=== PATIENT | female | born 1950 | race Caucasian/White ===

== ENCOUNTER → 2018-12-19 11:34 | Outpatient (CLI) | payer MEDICARE, SELFPAY ==
--- NOTE | 2018-12-19 11:37 | NM_ITS ---
History and Indications: Hypertension, diabetes, tobacco use, family history, chest pain, shortness of breath abnormal EKG and fatigue Procedure: Patient received a 0.4 mg of intravenous Lexiscan, resting heart rate was 60 bpm resting blood pressure 129/51, with Lexiscan maximum heart rate achieved was 95 bpm which is less than 85% of the maximum predicted heart rate and a blood pressure was 91/47. With Lexiscan patient complained of nausea and vomiting requiring intravenous Aminophyllin to reverse symptoms. Electrocardiogram: Resting electrocardiogram showed sinus rhythm, with Lexiscan there is less than 1.[address] segment depression noted from the baseline EKG. The EKG portion of the Lexiscan Myoview is nondiagnostic. Cardiac stress and resting SPECT images: Cardiac stress and resting SPECT images were obtained using technetium 99 Myoview 32.7 mCi stress and 10.4 mCi at rest. Gated SPECT further analysis of segmental wall motion and calculation of the ejection fraction also done. Cardiac stress and resting SPECT images show uniform myocardial activity without segmental perfusion abnormality, computer derived ejection fraction is over 65% with no regional wall motion abnormality, right ventricle is normal size and contractility. Conclusion: 1. The EKG portion of the Lexiscan Myoview is nondiagnostic. 2. No scintigraphic evidence of reversible ischemia seen, computer derived ejection fraction is over 65% with no regional wall motion abnormality, right ventricle is normal size and contractility. 3. Normal Lexiscan Myoview study.
--- NOTE | 2018-12-19 12:46 | HMH.ITSHM ---
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 []CARVEDILOL METFORMIN ASA CITALOPRAM XARELTO ATORVASTATIN HYDROCHLOROT OMEPRAZOLE VITAMIN E VITAMIN B12 SPIRONOLACTONE NOVOLIN
== END ==
PROVIDERS: PCP Nurse Practitioner Family; Visit Provider Internal Medicine
DX: R07.9 Chest pain, unspecified (principal); R06.02 Shortness of breath
CPT/HCPCS: 78452; 93017; A9502; J2785

== ENCOUNTER → 2019-06-21 08:24 | Outpatient (CLI) | payer MEDICARE, SELFPAY ==
[2019-06-21 09:54] LABS: Alanine Aminotransferase 21 U/L (12-78); Albumin Level 3.6 gm/dL (3.4-5.0); Albumin/Globulin Ratio 1.3 (1.1-1.8); Alkaline Phosphatase 76 U/L (46-116); Anion Gap 11.8 mEq/L (5-15); Aspartate Amino Transferase 16 U/L (15-37); Bilirubin,Total 0.6 mg/dL (0.2-1.0); Blood Urea Nitrogen 23 mg/dL (7-18); Calcium 9.4 mg/dL (8.5-10.1); Carbon Dioxide 31 mmol/L (21.0-32.0); Chloride 105 mmol/L (98-107); Chol/HDL Ratio 2.9 (1-3.5); Cholesterol 168 mg/dL (140-200); Creatinine,Serum 1.45 mg/dL (0.55-1.02); Estimated Glomerular Filt Rate 36 ml/min (>60); GFR (African American) 43 ML/MIN (>60); Globulin 2.8 gm/dl (1.3-3.2); Glucose 112 mg/dL (74-106); HDL Cholesterol 57 mg/dL (29-89); LDL Cholesterol 85 mg/dL (0-130); Potassium 4.8 mmoL/L (3.5-5.1); Sodium 143 mmol/L (136-145); Total Protein,Serum 6.4 gm/dL (6.4-8.2); Triglycerides 131 mg/dL (30-200); VLDL Cholesterol 26 mg/dL (0-40)
[2019-06-22 09:25] LABS: Creatinine, Urine 216.5 mg/dL (Not Estab.); Microalbumin, Urine 6.2 ug/mL (Not Estab.)
== END ==
PROVIDERS: Visit Provider Internal Medicine Endocrinology, Diabetes & Metabolism
DX: E11.65 Type 2 diabetes mellitus with hyperglycemia (principal); E11.29 Type 2 diabetes mellitus with other diabetic kidney complication; E78.5 Hyperlipidemia, unspecified; I10 Essential (primary) hypertension; N18.3 Chronic kidney disease, stage 3 (moderate); Z79.4 Long term (current) use of insulin
CPT/HCPCS: 36415; 80053; 80061; 82043; 82570

== ENCOUNTER → 2019-08-12 08:11 | Outpatient (CLI) | payer MEDICARE, SELFPAY ==
--- NOTE | 2019-08-12 08:18 | CT_ITS ---
PROCEDURE: CT SHOULDER RT WO CON CLINICAL HISTORY: Rt shoulder pain Evaluate right shoulder fracture, right humeral fracture COMPARISON: XR SHOULDER RT MIN 2V from 08/06/2019 TECHNIQUE: Axial images obtained with sagittal and coronal reformats. All CT scans at the facility use one or more dose reduction, viz: automated exposure control, ma/kV adjustment per patient size (including targeted exams where dose is matched to indication, i.e. head), or iterative reconstruction technique. FINDINGS: There is a severely comminuted fracture involving the neck of the right humerus with extension into the humeral head with impaction of the fracture fragments. There is posterior displacement of the distal humerus by 9 mm. There is foreshortening with impaction of the distal humerus by 10 mm. Comminuted fracture involves the humeral head and greater tuberosity with lateral displacement of the greater tuberosity fragment by nearly 2 cm. There is mild inferior subluxation of the humeral head. No glenoid fracture is evident. Increased soft tissue density is present within the joint consistent with intra-articular hemorrhage. The acromioclavicular joint has an unremarkable appearance. IMPRESSION: Severely comminuted displaced and impacted fracture of the right humeral neck and head as described above. There is mild lateral and inferior humeral head subluxation but no lukas dislocation. Intra-articular hemarthrosis noted. Dictated by: Archie Perez MD 08/13/2019 07:23 Electronically signed by Archie Perez MD in [place] 08/13/2019 07:23
== END ==
PROVIDERS: PCP Nurse Practitioner Family; Referring Provider Orthopaedic Surgery; Visit Provider Orthopaedic Surgery
DX: S42.201A Unspecified fracture of upper end of right humerus, initial encounter for closed fracture (principal)
CPT/HCPCS: 73200

== ENCOUNTER → 2020-12-04 13:31 | Outpatient (CLI) | payer MEDICARE, MEDICAID, SELFPAY ==
--- NOTE | 2020-12-04 13:31 | CT_ITS ---
PROCEDURE: CT LUNG SCREENING CLINICAL INDICATION: LDCT Current smoker 30 pack year smoking history copd Family hx lung cancer History of COVID-19 Pt unable to raise arms above head No prior COMPARISON: No exams were available for comparison TECHNIQUE: The exam was performed on a [employer] Speed [address] scanner using 2.90 mGy CTDI. A low dose helical CT CHEST was performed on a multi-detector scanner. All CT scans at the facility use one or more dose reduction, viz: automated exposure control, ma/kV adjustment per patient size (including targeted exams where dose is matched to indication, i.e. head), or iterative reconstruction technique. The LDCT was performed in a facility that meets the criteria for the screening program. Data regarding this exam was submitted to ACR which is an approved registry. The order for this exam indicates that it came as a result of a lung cancer screening counseling shard decision-making visit that included all the elements required of such a visit including smoking cessation. The radiologist interpreting this exam meets the CMS criteria for the LDCT lung cancer screening program. The exam is reported using the Lung-RADS classification scale and reported to the ACR registry. NOTE: This study was performed for the specific purposes of lung cancer screening and is not an alternative to diagnostic chest CT. RADIATION DOSE: CTDI vol(CT dose Index-volume) = 2.90mG DLP (Dose Length Product) = 108.38 mGcm FINDINGS: Artifact is present from the patient's right shoulder prosthesis and the fact that the patient could not raise are arms above their head. There are scattered atelectatic and/or fibrotic changes. No suspicious pulmonary nodule identified soft tissue evaluation is very limited. Bony evaluation also very limited. Cannot adequately evaluate the mediastinal structures, bony structures, and upper abdominal structures. OTHER FINDINGS: No other pertinent findings evident. IMPRESSION: Lung-RADS Category 1 Negative Follow-up: Continue annual screening with LDCT in 12 months Dictated by: Archie Perez MD 12/06/2020 18:24 Archie Perez MD in [place] 12/06/2020 18:24
[2020-12-04 15:34] VITALS: PULSE 71; PULSE 75
== END ==
PROVIDERS: PCP Family Medicine; Visit Provider Internal Medicine Pulmonary Disease
DX: Z12.2 Encounter for screening for malignant neoplasm of respiratory organs; Z87.891 Personal history of nicotine dependence; R06.00 Dyspnea, unspecified
CPT/HCPCS: 71271; 94060; 94640; 94727; 94729

== ENCOUNTER → 2022-02-08 14:09 | Outpatient (CLI) | payer MEDICARE, MEDICAID, SELFPAY | PROVIDERS: PCP Family Medicine; Visit Provider Internal Medicine Pulmonary Disease | DX: Z87.891 Personal history of nicotine dependence (principal); Z12.2 Encounter for screening for malignant neoplasm of respiratory organs ==

== ENCOUNTER → 2022-03-10 15:28 | Outpatient (CLI) | payer MEDICARE, MEDICAID, SELFPAY ==
--- NOTE | 2022-03-10 15:31 | CT_ITS ---
FINAL REPORT CLINICAL HISTORY: lung cancer screening, 30 year smoking history COMPARISON: 12/04/2020 FINDINGS: CTDI vol (mGy): 2.[address] images of the chest were obtained using the low-dose protocol for screening. Exam is suboptimal secondary to patient body habitus and streak artifact from the patient's arms. There is no evidence of mediastinal or hilar mass or adenopathy. No axillary mass or adenopathy is identified. On the lung window images, no pulmonary mass or suspicious nodule is identified. There is mild bibasilar atelectasis or scarring. IMPRESSION: Lung RADS category 1 . Recommend 12 month followup low-dose CT for further evaluation. Reviewed, Interpreted and Dictated by John Hameed III, MD Transcribed by Reema Singh Authenticated by John Hameed III, MD on 03/10/2022 04:36:[address] [facility]
== END ==
PROVIDERS: PCP Family Medicine; Visit Provider Internal Medicine Pulmonary Disease
DX: Z87.891 Personal history of nicotine dependence (principal); Z12.2 Encounter for screening for malignant neoplasm of respiratory organs
CPT/HCPCS: 71271

== ENCOUNTER → 2022-03-29 09:30 | Outpatient (CLI) | payer MEDICARE, MEDICAID, SELFPAY ==
[2022-03-29 13:17] LABS: Chloride 93 mmol/L (98-107); Sodium 132 mmol/L (136-145)
[2022-03-29 13:20] LABS: Blood Urea Nitrogen 22 mg/dl (7-17); Carbon Dioxide 34 mmol/L (22.0-30.0); Estimated Glomerular Filt Rate 44 ml/min (>60); GFR (African American) 53 ML/MIN (>60)
[2022-03-29 13:21] LABS: Calcium 9.7 mg/dl (8.4-10.2); Glucose 256 mg/dl (74-100)
== END ==
PROVIDERS: Visit Provider Nurse Practitioner Family
DX: N18.2 Chronic kidney disease, stage 2 (mild) (principal)
CPT/HCPCS: 36415; 80048